=== PATIENT | female | born 2000 | race Caucasian/White ===

== ENCOUNTER 2019-03-12 23:35 | Emergency (ER) | payer OTHER ==
[~2019-03-12] VITALS: Ht 162.6 cm; Wt 52.8 kg
[2019-03-13] MEDS ORDERED: ONDANSETRON ODT 4 MG PO ONE (00:30)
[2019-03-13] MEDS ORDERED: MAALOX/HYOSCYAMINE/LIDOCAINE 45 ML BTL PO ONE (00:30)
[2019-03-13] MEDS ORDERED: ONDANSETRON 4 MG TABLET PO ONE (00:30)
[2019-03-13] MEDS ORDERED: ONDANSETRON ODT 4 MG ONE (00:57)
[2019-03-13] MEDS ORDERED: MAALOX/HYOSCYAMINE/LIDOCAINE 45 ML BTL ONE (00:57)
--- NOTE | 2019-03-13 01:00 | NUR ---
PT HERE FOR ALL OVER ABD PAIN. UA SENT TO LAB. PT TO BE MEDICATED FOR N/V
[2019-03-13 01:15] VITALS: BP 114/72
[2019-03-13 01:23] LABS: MICROSCOPIC INDICATED
--- NOTE | 2019-03-13 01:26 | NUR ---
PT VOMITED AFTER GI COCKTAIL. MD [facility]
--- NOTE | 2019-03-13 01:40 | NUR ---
Patient given discharge instructions and they have confirmed that they understand the instructions. Patient ambulatory with steady gait.
[2019-03-13 01:41] LABS: CULTURE INDICATED? NO
== END 2019-03-13 01:44 | disposition home or self-care (01) ==
LOC: ED 23:59
DX: R10.13 Epigastric pain (principal); R11.2 Nausea with vomiting, unspecified
CPT/HCPCS: 81001; 81025; 99283; Q0162